=== PATIENT | female | born 1965 | race Caucasian/White ===

== ENCOUNTER 2018-05-05 09:27 | Inpatient (IN) ==
[2018-05-05] MEDS ORDERED: HYDROmorphone 2 MG/1 ML VIAL IV STA (10:17)
[2018-05-05] MEDS ORDERED: ONDANSETRON 4 MG/2 ML VIAL IV ONE (10:20)
[2018-05-05 10:30] LABS: Basophils % 0.4 % (0.0-0.8); Eosinophils % 0.2 % (0.00-10.9); Hematocrit 42.3 VOL% (35.7-47.0); Hemoglobin 14.2 GM/DL (12.0-16.0); Immature Granulocytes % 1.1 %; Immature Granulocytes Absolute 0.09 #; Lymphocytes # 0.9 10*3/uL (1.4-4.0); Mean Corpuscular HGB Conc 33.6 GM/DL (32-36); Mean Corpuscular Hemoglobin 29 PG (27-34); Mean Corpuscular Volume 86.9 FL (87-102); Mean Platelet Volume 10.5 FL (9.6-12.0); Monocytes # 0.7 10*3/uL (0.11-0.8); Monocytes % 9.2 % (1.7-12.7); Neutrophils # 6.3 10*3/uL (1.4-7.4); Neutrophils % 78.1 % (38.7-73.9); Platelet Count 156 T/CUMM (130-400); Red Blood Count 4.87 MC/CUMM (3.8-5.5); Red Cell Distribution Width 13.7 % (9.3-17.3)
[2018-05-05 10:41] LABS: Albumin 2.8 G/DL (3.4-5.0); Bilirubin,Total 0.9 MG/DL (0.2-1.0); Calcium 9.5 MG/DL (8.5-10.1); Lactic Acid 1.3 MMOL/L (0.4-2.0); Osmolality,Calculated 276.5 MOS/KG (273-304); Potassium 2.8 MMOL/L (3.5-5.1); Total Protein 7.1 G/DL (6.4-8.3)
[2018-05-05] MEDS ORDERED: POTASSIUM CHLORIDE 20 MEQ TABLET PO STA (11:03)
[2018-05-05 11:52] LABS: Apearance,Urine CLEAR (Clear); Blood, Urine Small mg/dL (Negative); Glucose,Urine (UA) Negative (Negative); Ketones,Urine 20 mg/dL (Negative); Mucus,Urine Many /LPF (Occasional); Nitrite,Urine Negative (Negative); Protein,Urine 30 MG/DL; RBC,Urine 9 /HPF (0-4); Urine Color Amber (Yellow); Urine Specific Gravity 1.019 (1.001-1.035); WBC,Urine 1 /HPF (0-6)
[2018-05-05 11:55] LABS: Bilirubin,Urine Small mg/dL (Negative)
[2018-05-05] MEDS ORDERED: ACETAMINOPHEN 325 MG TABLET PO PRN (14:44)
[2018-05-05] MEDS ORDERED: BENZONATATE 100 MG CAPSULE PO PRN (14:58)
[2018-05-05] MEDS ORDERED: SODIUM CHLORIDE 0.9% 1,000 ML IV SCH (15:00)
[2018-05-05] MEDS: MORPHINE 4 MG/1 ML VIAL IV PRN ×2 (15:25→21:27)
[2018-05-05] MEDS: POTASSIUM CHLORIDE RIDER 10 MEQ in PREMIX 1 EACH IV PRN ×2 (15:25→17:18)
[2018-05-05] MEDS: ENOXAPARIN 40 MG/0.4 ML SYRINGE SUBCUT SCH (15:25)
[2018-05-05] MEDS: ONDANSETRON 4 MG/2 ML VIAL IV PRN (15:25)
[2018-05-05] MEDS: PANTOPRAZOLE 40 MG TABLET PO SCH (15:26)
[2018-05-05] MEDS ORDERED: METHYLNALTREXONE 12 MG/0.6 ML VIAL SUBCUT ONE (15:33)
[2018-05-05] MEDS: POTASSIUM CHLORIDE INJ 30 MEQ in SODIUM CHLORIDE 0.9% 1,000 ML IV SCH (18:35)
[2018-05-05] MEDS: ALPRAZolam 0.25 MG TABLET PO SCH (21:20)
[2018-05-05] MEDS: GABAPENTIN 300 MG CAPSULE PO SCH (21:20)
[2018-05-05] MEDS: DOCUSATE/SENNA 50-8.6 MG TABLET PO SCH (21:20)
[2018-05-05] MEDS: MORPHINE ER 30 MG TABLET PO SCH (21:21)
[2018-05-05] MEDS: TEMAZEPAM 15 MG CAPSULE PO SCH (21:21)
[2018-05-05] MEDS: PRAMIPEXOLE 0.25 MG TABLET PO SCH (21:27)
[2018-05-06 02:50] LABS: Basophils % 0.3 % (0.0-0.8); Eosinophils # 0.1 10*3/uL (0.0-0.87); Eosinophils % 0.7 % (0.00-10.9); Hematocrit 40.4 VOL% (35.7-47.0); Hemoglobin 13.4 GM/DL (12.0-16.0); Immature Granulocytes % 1.4 %; Lymphocytes # 1.3 10*3/uL (1.4-4.0); Lymphocytes % 18.4 % (21.3-54.2); Mean Corpuscular HGB Conc 33.2 GM/DL (32-36); Mean Corpuscular Hemoglobin 29 PG (27-34); Mean Corpuscular Volume 86.7 FL (87-102); Mean Platelet Volume 10.9 FL (9.6-12.0); Monocytes # 0.8 10*3/uL (0.11-0.8); Monocytes % 11.8 % (1.7-12.7); Neutrophils # 4.8 10*3/uL (1.4-7.4); Neutrophils % 67.4 % (38.7-73.9); Platelet Count 170 T/CUMM (130-400); Red Blood Count 4.66 MC/CUMM (3.8-5.5); White Blood Count 7.1 T/CUMM (4-12)
[2018-05-06 03:08] LABS: Calcium 9.1 MG/DL (8.5-10.1); Osmolality,Calculated 280.1 MOS/KG (273-304); Potassium 3.6 MMOL/L (3.5-5.1)
[2018-05-06] MEDS: MORPHINE 4 MG/1 ML VIAL IV PRN ×4 (04:22→20:51)
[2018-05-06] MEDS: POTASSIUM CHLORIDE INJ 30 MEQ in SODIUM CHLORIDE 0.9% 1,000 ML IV SCH ×2 (04:25→20:43)
[2018-05-06] MEDS ORDERED: MAGNESIUM SULF RIDER 2 GM in PREMIX 1 EACH IV PRN (07:57)
[2018-05-06] MEDS ORDERED: MAGNESIUM SULF RIDER 4 GM in PREMIX 1 EACH IV PRN (07:57)
[2018-05-06] MEDS: PANTOPRAZOLE 40 MG TABLET PO SCH (09:01)
[2018-05-06] MEDS: MONTELUKAST 10 MG TABLET PO SCH (09:01)
[2018-05-06] MEDS: DOCUSATE/SENNA 50-8.6 MG TABLET PO SCH ×2 (09:01→20:45)
[2018-05-06] MEDS: GABAPENTIN 300 MG CAPSULE PO SCH (09:01)
[2018-05-06] MEDS: MORPHINE ER 30 MG TABLET PO SCH ×2 (09:02→20:45)
[2018-05-06] MEDS: ALPRAZolam 0.25 MG TABLET PO SCH ×2 (09:02→20:45)
[2018-05-06] MEDS ORDERED: METHYLNALTREXONE 12 MG/0.6 ML VIAL SUBCUT ONE (10:43)
[2018-05-06] MEDS: ONDANSETRON 4 MG/2 ML VIAL IV PRN (12:36)
[2018-05-06] MEDS: GABAPENTIN 400 MG CAPSULE PO SCH ×2 (16:26→20:45)
[2018-05-06] MEDS: ENOXAPARIN 40 MG/0.4 ML SYRINGE SUBCUT SCH (16:26)
[2018-05-06] MEDS: PRAMIPEXOLE 0.25 MG TABLET PO SCH (20:44)
[2018-05-06] MEDS: TEMAZEPAM 15 MG CAPSULE PO SCH (20:44)
[2018-05-07] MEDS: MORPHINE 4 MG/1 ML VIAL IV PRN ×6 (00:49→22:43)
[2018-05-07 03:18] LABS: Basophils % 0.5 % (0.0-0.8); Eosinophils # 0.1 10*3/uL (0.0-0.87); Eosinophils % 1.8 % (0.00-10.9); Hematocrit 33.2 VOL% (35.7-47.0); Hemoglobin 10.7 GM/DL (12.0-16.0); Immature Granulocytes % 2.2 %; Immature Granulocytes Absolute 0.12 #; Lymphocytes # 1.2 10*3/uL (1.4-4.0); Lymphocytes % 20.9 % (21.3-54.2); Mean Corpuscular HGB Conc 32.2 GM/DL (32-36); Mean Corpuscular Hemoglobin 29 PG (27-34); Mean Platelet Volume 10.6 FL (9.6-12.0); Monocytes # 0.6 10*3/uL (0.11-0.8); Monocytes % 10.6 % (1.7-12.7); Neutrophils # 3.6 10*3/uL (1.4-7.4); Platelet Count 131 T/CUMM (130-400); Red Blood Count 3.69 MC/CUMM (3.8-5.5); Red Cell Distribution Width 13.7 % (9.3-17.3); White Blood Count 5.6 T/CUMM (4-12)
[2018-05-07 03:33] LABS: Calcium 7.3 MG/DL (8.5-10.1); Osmolality,Calculated 273.4 MOS/KG (273-304)
[2018-05-07 03:40] LABS: Potassium 7.4 MMOL/L (3.5-5.1)
[2018-05-07] MEDS: SODIUM CHLORIDE 0.9% 1,000 ML IV SCH ×2 (04:44→20:17)
[2018-05-07] MEDS: SODIUM POLYSTYRENE SULFATE 15 GM/60 ML BOTTLE PO SCH ×4 (04:44→22:01)
[2018-05-07] MEDS: GABAPENTIN 400 MG CAPSULE PO SCH ×3 (09:21→20:16)
[2018-05-07] MEDS: MONTELUKAST 10 MG TABLET PO SCH (09:22)
[2018-05-07] MEDS: MORPHINE ER 30 MG TABLET PO SCH ×2 (09:22→20:16)
[2018-05-07] MEDS: PANTOPRAZOLE 40 MG TABLET PO SCH (09:22)
[2018-05-07] MEDS: ALPRAZolam 0.25 MG TABLET PO SCH ×2 (09:27→20:16)
[2018-05-07] MEDS: DOCUSATE/SENNA 50-8.6 MG TABLET PO SCH ×2 (09:28→20:16)
[2018-05-07] MEDS: ENOXAPARIN 40 MG/0.4 ML SYRINGE SUBCUT SCH (14:59)
[2018-05-07] MEDS: PRAMIPEXOLE 0.25 MG TABLET PO SCH (20:16)
[2018-05-07] MEDS: TEMAZEPAM 15 MG CAPSULE PO SCH (20:17)
[2018-05-08] MEDS: SODIUM CHLORIDE 0.9% 1,000 ML IV SCH (01:03)
[2018-05-08 04:12] LABS: Basophils % 0.3 % (0.0-0.8); Eosinophils # 0.1 10*3/uL (0.0-0.87); Eosinophils % 1.5 % (0.00-10.9); Hematocrit 37.3 VOL% (35.7-47.0); Hemoglobin 12.2 GM/DL (12.0-16.0); Immature Granulocytes % 1.5 %; Immature Granulocytes Absolute 0.09 #; Lymphocytes # 1.2 10*3/uL (1.4-4.0); Lymphocytes % 20.5 % (21.3-54.2); Mean Corpuscular HGB Conc 32.7 GM/DL (32-36); Mean Corpuscular Hemoglobin 29 PG (27-34); Mean Corpuscular Volume 89.2 FL (87-102); Mean Platelet Volume 10.4 FL (9.6-12.0); Monocytes # 0.7 10*3/uL (0.11-0.8); Monocytes % 11.2 % (1.7-12.7); Neutrophils # 3.8 10*3/uL (1.4-7.4); Platelet Count 128 T/CUMM (130-400); Red Blood Count 4.18 MC/CUMM (3.8-5.5); Red Cell Distribution Width 13.4 % (9.3-17.3); White Blood Count 5.9 T/CUMM (4-12)
[2018-05-08] MEDS: SODIUM POLYSTYRENE SULFATE 15 GM/60 ML BOTTLE PO SCH ×2 (04:18→10:26)
[2018-05-08 04:36] LABS: Calcium 8.6 MG/DL (8.5-10.1); Osmolality,Calculated 275.3 MOS/KG (273-304); Potassium 2.6 MMOL/L (3.5-5.1)
[2018-05-08] MEDS: MORPHINE 4 MG/1 ML VIAL IV PRN ×2 (05:18→09:15)
[2018-05-08] MEDS: POTASSIUM CHLORIDE 20 MEQ TABLET PO PRN ×3 (05:21→09:16)
[2018-05-08 07:59] VITALS: BP 126/76
[2018-05-08] MEDS: DOCUSATE/SENNA 50-8.6 MG TABLET PO SCH (09:16)
[2018-05-08] MEDS: MONTELUKAST 10 MG TABLET PO SCH (09:16)
[2018-05-08] MEDS: GABAPENTIN 400 MG CAPSULE PO SCH (09:16)
[2018-05-08] MEDS: MORPHINE ER 30 MG TABLET PO SCH (09:16)
[2018-05-08] MEDS: PANTOPRAZOLE 40 MG TABLET PO SCH (09:16)
[2018-05-08] MEDS: ALPRAZolam 0.25 MG TABLET PO SCH (09:22)
== END 2018-05-08 11:44 | disposition hospice, home (50) | DRG 948 ==
LOC: N.EDINP 09:27 → N.ED 09:27 → N.4E 12:47
PROVIDERS: ADMIT Internal Medicine; ATTEND Internal Medicine